=== PATIENT | male | born 1955 | race Caucasian/White ===

== ENCOUNTER 2021-05-15 07:58 | Outpatient (CLI) | payer MEDICAID, SELFPAY ==
[2021-05-15 08:47] VITALS: BMI 31.1
--- NOTE | 2021-05-15 08:50 | ECG_ITS ---
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 Baseline heart rate was 73 beats per minute. Baseline blood pressure was 155/83 millimeters of mercury. Target heart rate was 157 beats per minute. Maximum heart rate achieved was 141, which was 89 % of the target heart rate. Maximum blood pressure was 137/97 millimeters of mercury. Total exercise time was 7 minutes 42 seconds. Maximum METs achieved was 10.2, maximum VO2 was 35.7. The reason for ending the test was maximum effort achieved. The patient complained of shortness of during the stress test, which then resolved at the end of the test. ELECTROCARDIOGRAM: BASELINE: Showed sinus rhythm, normal axis, right bundle branch block, no significant ST-T changes at the baseline noted. EXERCISE: At the peak exercise level, PVCs were noted no significant ST-T changes suggestive of ischemia noted. RECOVERY: During the recovery period, heart rate dropped appropriately. No significant ST-T changes in the recovery suggestive of ischemia noted. CONCLUSION: 1. Exercise capacity fair. 2. Heart rate response was appropriate. 3. Blood pressure response was hypertensive. 4. Symptoms not suggestive of ischemia. 5. Electrocardiogram portion of the stress test was not suggestive of ischemia. 6. Nuclear scan will be documented separately. Electronically Signed On 05-16-2021 17:47:44 CDT by BRITTANY SEN [id number]
--- NOTE | 2021-05-15 08:50 | NMCV_ITS ---
NM brian perf SPECT r/s* [id number] Damien Khanna Age: 65 Gender: M : 1955 Exam Date: 05/15/2021 09:08 Ordering Phys: Coleman Sen MD ([email or web address]) Technologist: NEELA Scanlon Exam Location: [facility] [place] Indications: CHEST PAIN; SHORTNESS OF BREATH STRESS TEST Please see separate stress test report in [facility] for full findings IMAGE PROTOCOL Rest/Stress 1 Exercise Day Radiopharmaceutical Dose (mCi) Administration Site Administered by Rest: Tc-99m 11.0 IV NEELA Scanlon Sestamibi Stress:Tc-99m 32.0 IV NEELA Matamoros Sestamibi Rest: 15-May-2021 60 Discovery 630 Stress: 15-May-2021 30 Discovery 630 Radiopharmaceutical was injected at 85 % maximum heart rate. Images obtained in supine and prone position. SPECT RESULTS Technical Quality: Excellent Raw Data Analysis: Normal Image Corrections: No attenuation or motion correction applied Summed Stress Score: 0 Summed Rest Score: 3 Summed Difference Score: 0 PERFUSION FINDINGS Medium-sized area of decreased tracer uptake noted in basal to distal inferoseptal inferior and inferolateral wall on the rest images which improved over stress images suggestive of artifact. FUNCTIONAL RESULTS (calculated via Gated SPECT) Stress Image LV EF (%): 70 Stress EDV (mL):90 TID: 1.16 Stress ESV (mL):27 Rest Image LV EF (%): 70 FUNCTIONAL FINDINGS: There is normal left ventricular systolic function. IMPRESSIONS Myocardial perfusion imaging is normal. TID ratio was elevated which could be secondary left ventricular hypertrophy/subendocardial ischemia. EKG segment will be documented separately Coleman Sen MD (Electronically Signed) Final Date: 15 May 2021 18:03 S
[2021-05-15 10:42] VITALS: BP 175/97; PULSE 97
== END 2021-05-15 07:59 | disposition home or self-care (01) ==
LOC: CDL 08:02
PROVIDERS: PCP Student in an Organized Health Care Education/Training Program; Visit Provider Internal Medicine Cardiovascular Disease
DX: R07.9 Chest pain, unspecified (principal); R06.02 Shortness of breath
CPT/HCPCS: 78452; 93017; A9500